=== PATIENT | male | born 2005 | race Caucasian/White ===

== ENCOUNTER 2024-05-29 10:18 | Inpatient (IN) | payer OTHER, SELFPAY ==
[2024-05-28 22:30] VITALS: BP 117/85
--- NOTE | 2024-05-28 23:08 | ED.GENMED ---
History of Present Illness
<RITA Ulloa - Last Filed: 05/29/24 03:37>
General
Chief Complaint: Esophageal Problem
Source: patient
Exam Limitations: none
Time Seen by Provider: 05/28/24 23:01
History of Present Illness
History of Present Illness:
This is a 19 year old male that comes in with c/o food stuck. States that he has a history of food impactions and has esophageal restrictions. State that he feels that there is steak stuck and it has onesimo 5-6 hours. States that he has tried hot and
cold and nothing is working. States that he was spitting up his saliva this afternoon. Denies any fever, chills, chest pain, SOB, abd pain, nausea, vomiting, diarrhea, headache, dizziness, urinary burning
Past History
<RITA Ulloa - Last Filed: 05/29/24 03:37>
Past History
ED Past Medical History: Other (Esophageal restrictions); Negative Asthma, HTN, Hypercholesterolemia or NIDDM
ED Past Surgical History: None
Social History
Tobacco: Smoker
Alcohol: None
Personal: Single
Living: with family (Grandparents)
Review of Systems
<RITA Ulloa - Last Filed: 05/29/24 03:37>
Review of Systems
All Other Systems: ROS reviewed and negative except as documented in HPI and ROS
Constitutional: Reports no symptoms; Denies fever or chills
EENT: Reports other (Feels that he has food Impaction)
Respiratory: Reports no symptoms; Denies cough
Cardiac: Reports no symptoms; Denies chest pain
ABD/GI: Reports no symptoms; Denies abdominal pain, nausea, vomiting or diarrhea
: Reports no symptoms; Denies dysuria, frequency or urgency
Musculoskeletal: Reports no symptoms
Skin: Reports no symptoms
Neurological: Reports no symptoms; Denies dizzy or headache
Psychiatric: Reports no symptoms
Phy Exam
<RITA Ulloa - Last Filed: 05/29/24 03:37>
General Physical Exam
General Presentation: well appearing and no apparent distress
General age: appears stated age
General Skin: warm and dry
General Habitus: normal
General Mental: alert
General Hydration: appears well hydrated
ENT Exam
ENT Exam: TM's normal, pharynx normal, neck supple and other (Patient at this time is swallowing his saliva. )
Eye Exam
Eye Exam: EOMI
Cardiovascular Exam
Cardiovascular Exam: regular rate/rhythm, no edema, no murmur and normal peripheral pulses
Pulmonary Exam
Pulmonary Exam: lungs clear, no respiratory distress, no rales, chest non tender, no crackles, no rhonchi, no wheezing and no cough
Gastrointestinal Exam
Gastrointestinal Exam: normal bowel sounds, non tender, soft, no organomegaly, no pulsatile mass and non distended
Musculoskeletal Exam
Musculoskeletal Exam: full ROM and no edema
Skin Exam
Skin Exam: normal color, warm/dry, no rash and no petechia
Psychiatric Exam
Psychiatric Exam: normal mood/affect
Course
<RITA Ulloa - Last Filed: 05/29/24 03:37>
Orders/Labs/Results
Orders:
Orders
05/28/24 23:08
Glucagon [GlucaGen] 1 mg IV NOW STA
05/28/24 23:49
Complete Blood Count/With Diff Urgent
Comprehensive Metabolic Panel Urgent
05/29/24 00:25
Glucagon [GlucaGen] 1 mg IV NOW STA
Abnormal Lab Results
05/28/24
23:49
MPV 10.9 H fL
(7.4-10.4)
Eosinophils % 7.8 H %
(0-6)
07/23/24 23:49
05/28/24 23:49
Labs unremarkable.
Vital Signs
Initial and Last Documented VS:
Initial Vital Signs
Temp Pulse Resp BP Pulse Ox
98.1 F 90 19 117/85 100
05/28/24 22:30 05/28/24 22:30 05/28/24 22:30 05/28/24 22:30 05/28/24 22:30
Last Documented Vital Signs
Temp Pulse Resp BP Pulse Ox
98.1 F 69 16 121/77 100
05/28/24 22:30 05/29/24 00:25 05/29/24 00:25 05/29/24 00:24 05/29/24 00:26
<Christin Aj, DO - Last Filed: 05/29/24 06:58>
Orders/Labs/Results
Orders:
Orders
05/28/24 23:08
Glucagon [GlucaGen] 1 mg IV NOW STA
05/28/24 23:49
Complete Blood Count/With Diff Urgent
Comprehensive Metabolic Panel Urgent
05/29/24 00:25
Glucagon [GlucaGen] 1 mg IV NOW STA
Abnormal Lab Results
05/28/24
23:49
MPV 10.9 H fL
(7.4-10.4)
Eosinophils % 7.8 H %
(0-6)
05/28/24 23:49
05/28/24 23:49
Vital Signs
Initial and Last Documented VS:
Initial Vital Signs
Temp Pulse Resp BP Pulse Ox
98.1 F 90 19 117/85 100
05/28/24 22:30 05/28/24 22:30 05/28/24 22:30 05/28/24 22:30 05/28/24 22:30
Last Documented Vital Signs
Temp Pulse Resp BP Pulse Ox
98.1 F 69 16 121/77 100
05/28/24 22:30 05/29/24 00:25 05/29/24 00:25 05/29/24 00:24 05/29/24 00:26
<RITA Ulloa - Last Filed: 05/29/24 03:37>
MDM/Problems Addressed
Differential Diagnosis Includes:
Food impaction,
MDM/Problems Addressed:
This is a 19 year old male that comes in with c/o food stuck in his esophagus. State that this started about 5-6 hours ago. States that he has had this before and he tried drinking cold and hot and nothing was helping.
Will check labs, and give IV Glucagon
Patient was given a second dose of Gucagon and then rechecked. Patient attempted to drink fluids after about a half hour and was unable to get them down. Patient spit them up and his saliva. Called and spoke with Brenna Nickerson and he will be in at
7am to take patient to the GI lab. Patient notified and he will await procedure.
Chronic conditions affecting care:
Esophageal strictures
Acute Exacerbation and/or Progression of Chronic Illness:
Esophageal strictures
<RITA Ulloa - Last Filed: 05/29/24 03:37>
*Pulse Oximetry
Patient hypoxic: no
*EKG
Interpreted by ED Provider?: NA
Rate: EKG- N/A
*Media Job Titles Interpretation
Rate: Media Job Titles- N/A
*Critical Care Note
Total Time (30-74mins, 75-104mins- exclusive of procedures): Not Applicable
ED Attending Note
<RITA Ulloa - Last Filed: 05/29/24 03:37>
-
Portions of this chart may have been created with voice recognition software.� Occasional wrong word or��sound alike� substitutions may have occurred due to the inherent limitations of voice recognition software.
<Christin Aj DO - Last Filed: 05/29/24 06:58>
ED Attending Note
Patient seen and examined by attending physician: Yes
I performed the substantive portion of visit, reviewed & personally made and approve the management plan that is documented in note by myself or RUTH.: Yes
I performed a history and physical exam of patient and discussed management with resident, I reviewed resident's note and agree with documented findings and plan of care.: Yes
ED Attending Note:
Patient seen and evaluated at bedside. Patient arrives with concern of food bolus. Notes history of impacted food bolus in the past. Patient initially seen by RUTH. Vital signs within normal limits. Patient handling secretions, however when
trying to drink fluids, vomited. RUTH tried glucagon x 2 without relief. In discussion with GI, will come in this morning for scope.
07:00 - Patient remains hemodynamic stable, again plan for scope by GI
Discharge Plan
Departure
Patient Disposition: GI LAB
Date of Disposition: 05/29/24
Time of Disposition: 01:36
Presentation/result/management discussed w/ accepting MD/DO: Dr. Ceja
Patient with high blood pressure during this ER visit?: No
Condition: Good
Covid-19: Not Applicable
Discharge Problem:
FOOD BOLUS esophagus
Referrals:
NONE,* [Family Provider] -
Interventions
Interventions:
*Risk Screen - Suicide Last Done: 05/28/24 22:30
*General Assessment Last Done: 05/28/24 22:30
*Neglect/Abuse Screening Last Done: 05/28/24 22:30
*ED COVID-19 Vaccine History Last Done: 05/28/24 22:30
XP-Ropguw-Txswafgspf Assessment Last Done: 05/28/24 23:50
ED-EENT Assessment Last Done: 05/28/24 23:50
Discharge Date and Time
Print Language: ISRAELI
[2024-05-28] MEDS: GlucaGen 1 MG IV (23:49)
[2024-05-28 23:50] VITALS: BMI 19.5
[2024-05-29] VITALS (16 sets, daily range): BP systolic 97–140; BP diastolic 57–77; BMI 19.4
[2024-05-29] LABS: % Basophils 0.8 % (0-2); % Eosinophils 7.8 % (0-6); % Immature Granulocytes 0.2 % (0-0.5); % Lymphocytes 38.5 % (20.5-51.1); % Monocytes 5.3 % (1.7-9.3); % Neutrophils 47.4 % (42.2-75.2); Absolute Basophils 0.1 10^3/uL (0-0.2); Absolute Eosinophils 0.7 10^3/uL (0-0.7); Absolute Lymphocytes 3.2 10^3/uL (1.2-3.4); Absolute Monocytes 0.4 10^3/uL (0.1-0.6); Hematocrit 40.4 % (39.0-52.0); Hemoglobin 14.5 g/dL (13.0-18.0); Mean Corp Hgb Conc. 35.9 g/dL (33.0-37.0); Mean Corpuscular Hgb 29.5 pg (27.0-31.0); Mean Corpuscular Volume 82.3 fL (80.0-94.0); Mean Platelet Volume 10.9 fL (7.4-10.4); Nucleated Red Blood Cells % 0 % (-); Platelet Count 199 10^3/uL (130-400); Red Blood Cell Count 4.91 10^6/uL (4.70-6.10); White Blood Cell Count 8.4 10^3/uL (4.8-10.8)
[2024-05-29 00:15] LABS: ALT (SGPT) 17 U/L (0-50); AST (SGOT) 27 U/L (17-59); Albumin 4.8 g/dl (3.5-5.0); Alkaline Phosphatase 64 U/L (38-126); Blood Urea Nitrogen 16 mg/dl (9-20); Calcium 9.6 mg/dl (8.4-10.2); Carbon Dioxide 30 mmol/L (22-30); Chloride 101 mmol/L (98-107); Estimated Creatinine Clearance 108 ml/min; Glucose 91 mg/dl (70-99); Potassium 4.1 mmol/L (3.5-5.1); Sodium 138 mmol/L (135-145); Total Bilirubin 0.8 mg/dl (0.2-1.3); eGFR > 60.00
[2024-05-29] MEDS: GlucaGen 1 MG IV (00:30)
--- NOTE | 2024-05-29 08:02 | CON.GI ---
Consultation
-
Date/Time Consultation Requested: 05/29/2024
Date/Time Consultation Performed: 05/29/2024
Requesting Provider: ED
Performing Provider: Eugene CALVERT
Reason for Consultation: Food bolus
Medical History
Chief Complaint / HPI
Chief Complaint: dysphagia
History of Present Illness:
19 y/o male with no significant pmhx c/o food impaction after eating steak for dinner . unable to tolerate liquid. no nausea/ vomiting/ chest pain/ SOB. intermittent difficulty swallowing in the past. No prior endoscopy .
Past Medical History
Past Medical History: None
Allergies / Home Medications
Allergy/AdvReac Type Severity Reaction Status Date / Time
shellfish derived Allergy Hives Verified 05/28/24 22:30
tree nut Allergy Hives Verified 05/28/24 22:30
Review of Systems
-
All other systems: A 12 pt ROS was Negative except as stated above in HPI
Vital Signs
Temp Pulse Resp BP Pulse Ox
98.1 F 69 16 110/73 100
05/28/24 22:30 05/29/24 00:25 05/29/24 00:25 05/29/24 07:19 05/29/24 07:19
Physical Exam
Exam
General: Well Developed and No Apparent Distress
Respiratory: Clear
Cardiac: S1/S2
GI: Soft, Non Tender and Non Distended
Results
WBC 8.4 10^3/uL (4.8-10.8) 05/28/24 23:49
Hgb 14.5 g/dL (13.0-18.0) 05/28/24 23:49
Hct 40.4 % (39.0-52.0) 05/28/24 23:49
MCV 82.3 fL (80.0-94.0) 05/28/24 23:49
Plt Count 199 10^3/uL (130-400) 05/28/24 23:49
Absolute Neuts (auto) 4.0 10^3/uL (1.4-6.5) 05/28/24 23:49
Sodium 138 mmol/L (135-145) 05/28/24 23:49
Potassium 4.1 mmol/L (3.5-5.1) 05/28/24 23:49
Chloride 101 mmol/L (98-107) 05/28/24 23:49
Carbon Dioxide 30 mmol/L (22-30) 05/28/24 23:49
BUN 16 mg/dl (9-20) 05/28/24 23:49
Creatinine 1.0 mg/dL (0.7-1.3) 05/28/24 23:49
Calcium 9.6 mg/dl (8.4-10.2) 05/28/24 23:49
Total Bilirubin 0.8 mg/dl (0.2-1.3) 05/28/24 23:49
AST 27 U/L (17-59) 05/28/24 23:49
ALT 17 U/L (0-50) 05/28/24 23:49
Alkaline Phosphatase 64 U/L (38-126) 05/28/24 23:49
Diagnostic Image Results:
Prior GI Procedures:
EGD:
Colonoscopy:
Assessment / Plan
-
19 y/o male c/o food impaction. Intermittent dysphagia in the past. No prior EGD
plan
EGD today
Total Time Spent with Patient (in minutes): 55
-
-
Thank you for consultation and allowing me to participate in the patient's care. Please call the iphone developer GI physician during the after hours with any questions or concerns.
--- NOTE | 2024-05-29 09:19 | HPS.HSE ---
Family Physician
-
Family Physician: * NONE
Chief Complaint
-
Food stuck in chest
History of Present Illness
Patient is a 19-year-old male with no previous past medical history came to ER for having sensation of food stuck in lower chest. Patient had 1 or 2 episode in the past where patient was able to pass the food bolus with liquid. Patient attempted
similar this time without much help. Patient came to ER for further evaluation and clinically there was concern of impacted food. GI was consulted and patient was taken to endoscopy where food bolus was able to be evacuated. Patient was noticed
to having significant narrowing of esophagus and waviness mucosa suspected to have eosinophilic esophagitis. Biopsy samples were taken and while scope being withdrawn patient was noted to having to midesophagus linear mucosal tear. Patient was
also complaining significant chest pain and there was concern of having an esophageal perforation. Patient was sent down to have emergent CT chest confirming the suspicion with imaging showing diffuse pneumomediastinum. Hospitalist service were
involved in care for patient to be admitted to ICU while awaiting further management plan.
Time of my visit patient in pain and distress and not able to provide any information.
Medical History
Past Medical History
Past Medical History: Reports Other
Additional Past Medical History:
None
Past Surgical History: Reports None
Social History
Tobacco: Non-smoker
Alcohol: None
Drug: None
Family History
Family History: Not pertinent
Allergies / Home Medications
Allergies reflects when Allergies were last updated in [facility].
Home Medications with original date entered in [facility]
Allergy/Medication List:
No home meds
NKDA
Review of Systems
-
Unable to obtain full review of systems at this time due to: Acuity
Physical Exam
Vital Signs
Vital Signs
Temp Pulse Resp BP Pulse Ox
97.5 F 73 16 105/63 100
05/29/24 08:45 05/29/24 09:00 05/29/24 09:00 05/29/24 09:00 05/29/24 09:00
Physical Exam
General: Appears in Distress and Pain
HEENT: Moist mucous membranes and Oxygen (2 L NC)
Respiratory: Clear
Cardiac: S1/S2 and Regular Rhythm; No Murmur or Rub
GI: Soft, Non Distended, Normal Bowel Sounds and Tender (epigastric); No Organomegaly
Musculoskeletal: No Edema
Skin: No Rash
Neuro: Nonfocal/grossly intact
Laboratory Results
-
05/28/24 23:49
05/28/24 23:49
Laboratory Results
Total Bilirubin 0.8 mg/dl (0.2-1.3) 05/28/24 23:49
AST 27 U/L (17-59) 05/28/24 23:49
ALT 17 U/L (0-50) 05/28/24 23:49
Alkaline Phosphatase 64 U/L (38-126) 05/28/24 23:49
Data Reviewed
-
CT Scan: Image Personally Visualized and interpreted, Report Reviewed by me and Discussed with Physician
Lab Data: Labs Reviewed by me
Impression/Plan
-
1. Esophageal perforation
Pneumomediastinum
s/p endoscopic evacuation of impacted food bolus
-As mentioned in HPI patient had endoscopic with question of impacted distal esophageal food bolus
-Patient noted to having mid esophageal tear endoscopically
-CT chest was showing diffuse pneumomediastinum
-GI care with on-call cardiothoracic surgeon who recommended patient to be transferred to tertiary center for need of esophageal repair.
-Patient accepted by [facility] cardiothoracic surgery and being transferred emergently for further care
-Patient to be admitted to ICU while in
-Started patient on empirically vancomycin/Unasyn and micafungin
-Maintain patient n.p.o. on IV fluid and pain medication
-Case discussed with gauge inspector/GI
2. Presumed eosinophilic esophagitis
-Based on endoscopic finding GI suspecting component of eosinophilic esophagitis
-Biopsy has been taken
-Maintain on IV twice daily PPI
DVT prophylaxis -SCD
Full code
Total time spent : 80 mins
I personally saw and examined the patient.
I have reviewed all diagnostic interpretations and treatment plans as written.
Time includes patient management by me, time spent at the patients bedside, time to review lab and imaging results, discussing patient care, documentation in the medical record, and time spent with the family or caregiver and discussing care plan
with RN/Consultants.
[2024-05-29] MEDS: MORPHINE SULFATE 1 MG IV ×3 (09:35→14:42)
[2024-05-29] MEDS: MORPHINE SULFATE IV (09:36)
[2024-05-29] MEDS: SUBLIMAZE 25 MCG IV (10:02)
[2024-05-29] MEDS: D5LR 1000 IV (10:26)
[2024-05-29] MEDS: VANCOCIN 540 MG IV (10:27)
--- NOTE | 2024-05-29 10:36 | CON.INTV ---
Consultation
Consultation Request
Date/Time Consultation Requested: 05/29/2024-10:30 AM
Date/Time Consultation Performed: 05/29 24-10:45 AM
Requesting Provider: Hospitalist-Dr. Rod
Performing Provider: Dr. Tsang
Reason for Consultation: Esophageal perforation/critical care management
Medical History
-
Chief Complaint: Chest and abdominal pain
History of Present Illness:
19-year-old male without significant past medical history complained of food impaction after eating steak for dinner and try to dislodge with some retching for 7 hours prior to coming to the emergency room who had endoscopy with impaction removal
and notation of esophageal perforation-computer analyst consulted for esophageal perforation/mediastinitis 05/25/2024. The patient is complaining of significant pain in the chest especially with deep inspiration, morphine helping, no abdominal pain,
nausea, weakness, shortness of breath.
Past Medical History
Past Medical History: None (No history of cardiac, pulmonary, renal, gastrointestinal or neurologic disease)
Social History
Tobacco: Non-smoker
Personal: Single
Living: With Family
Occupational Exposures: No known asbestos exposure
Environmental Exposures: No known tuberculosis exposure
Family History
Family History: Reviewed & Not Pertinent
Allergies / Home Medications
Allergies
Allergy/AdvReac Type Severity Reaction Status Date / Time
shellfish derived Allergy Hives Verified 05/28/24 22:30
tree nut Allergy Hives Verified 05/28/24 22:30
Review of Systems
-
Unable to Obtain full review of systems at this time due to: Other (Per HPI)
Vitals / Labs / Diagnostic Testing
Vital Signs
Temp Pulse Resp BP Pulse Ox
97.5 F 68 18 128/71 100
05/29/24 08:45 05/29/24 10:00 05/29/24 10:00 05/29/24 10:00 05/29/24 10:10
Lab Data
05/28/24 23:49
05/28/24 23:49
Diagnostic Testing:
Physical Exam
-
Exam:
Well-nourished and well-developed in no apparent distress
HEENT-atraumatic, normocephalic
Neck-supple, no JVD, no bruit
Heart-regular rate and rhythm-no murmurs, rubs or gallops
Chest clear without wheezing or crackling, no subcutaneous air
Abdomen soft nondistended,
Extremities-no cyanosis, clubbing, edema and good peripheral pulses
Integument-intact, no rashes, lesions or ecchymosis
Neurology-alert and oriented, nonfocal motor and sensory exam
Assessment
-
19-year-old male without significant past medical history complained of food impaction after eating steak for dinner and try to dislodge with some retching for 7 hours prior to coming to the emergency room who had endoscopy with impaction removal
and notation of esophageal perforation-computer analyst consulted for esophageal perforation/mediastinitis 05/25/2024.
Food impaction status post EGD 05/25/2024
Esophageal perforation
Conditions present prior to admission:
No significant past medical history
Plan
Patient will be admitted to medical/surgical intensive care unit for close observation
Supplemental oxygen as needed
Intubated mechanically ventilated if necessary
Close hemodynamic monitoring and support
Large-bore intravenous line
Intravenous fluid with isotonic saline or lactated Ringer's
Pressors as needed
GI evaluation ongoing
EGD 05/29/24-fluid found in lower third of esophagus, most of fluid was removed with net, biopsies taken for suspected eosinophilic esophagitis, 2 areas in the mid esophagus with linear mucosal tears were noted
Check cultures
Broad-spectrum antibiotics to cover mediastinitis-ampicillin/sulbactam, micafungin and vancomycin initiated
Thoracic surgical evaluation
Islam of luminal integrity if feasible
Control of extraluminal contamination
Analgesia-morphine and Dilaudid provided
Monitor for oversedation and respiratory depression
DVT prophylaxis-mechanical for now
GI prophylaxis-on intravenous PPI
Nutrition per surgery
Early mobilization
Transfer to tertiary center-[facility] has accepted-await bed availability
Critical care statement: A total of 55 minutes of critical care time was provided for this patient today. This includes management of unstable vital signs, evaluation of the patient at bedside, reviewing the patient's pertinent medical records
including radiographs, antibiotic and pressor management, pain management, microbiology, laboratory evaluations, and discussion with primary team, consultants, pharmacy, nutrition, physical therapy, case management, charge nurse, critical care
nursing, and respiratory therapy.
Diagnostic data:
Chest x-ray 05/29/2024-NAD, suboptimal visualization subcutaneous gas in the lower neck, no airspace disease, no pneumothorax
CT chest 05/25/2024-pneumomediastinum, partially visualized pneumoperitoneum, subcutaneous gas in the lower neck compatible with perforated viscus, central airways are patent, left lower lobe atelectasis
Data Reviewed
-
Radiology: Report reviewed by me
CT Scan: Image personally visualized and interpreted and Report reviewed by me
Medical Tests (Nuc Med, Echo etc): Report reviewed by me
Labs: Labs reviewed by me
Old Records: Reviewed
Critical Care Time (in minutes): 55
[2024-05-29] MEDS: PROTONIX IV 40 MG IV (10:39)
[2024-05-29] MEDS: NSS (PRESERVATIVE FREE) 10 ML IV (10:39)
--- NOTE | 2024-05-29 10:39 | W.PN.UPDATE ---
Update Note
Progress Note Update
CT chest findings discussed with patient / patient's father/ hospitalist/ CT surgery at . CT surgery at recommend patient to be transferred to [facility] for further care. Patient will be admitted to the ICU. Broad spectrum IV antibiotics .
Discussed with Dr. Gaytan - thoracic surgeon AT [facility] - accepted this patient as level 0. will transfer patient to [facility] when bed is available. Plan updated to Patient's father/ hospitalist team.
--- NOTE | 2024-05-29 11:10 | PHA.VAN.IN ---
Assessment
- Assessment
Renal Function: Unknown baseline (likely similar to baseline)
Concomitant Antimicrobials: ampicillni/sulbactam, micafungin
AUC Dosing Plan
- Dosing Variables
Dosing Weight (kg): 77.6
Dosing CrCl (ml/min): 107-125
Vd coefficient (L/kg): 0.7
Used IBW for dosing weight given BMI < 20
CrCl range calculated using IBW and TBW
- Empiric Dosing
Initial / Loading Dose: 2000mg - 05/29 10:27
Maintenance Regimen: Vanc 750mg Q8H at 2200
Estimated AUC (mcg*h/mL): 404 - 465
Estimated Peak (mcg*h/mL): 23.8 - 26.3
Estimated Trough (mcg/ml): 11.2 - 13.7
Estimated Half Life (H): 6.4 - 7.4
- Monitoring
No levels ordered at this time: consider levels in next few days
Pharmacokinetics Vancomycin I
- -
Patient Age: 19
Patient Sex: Male
Vancomycin Day #: 1
Indication: Other
Requesting Provider: Dr. Rod
Pertinent Antimicrobial Allergies:
no pertinent antibiotic allergies
Height / Weight:
Height 6 ft
Actual Weight 64.8 kg
IBW in k.6
Pertinent Past Medical History: 19.4
- Vital Signs / Lab Results
Temp Pulse Resp BP Pulse Ox
97.9 F 68 18 128/71 100
05/29/24 10:41 05/29/24 10:00 05/29/24 10:00 05/29/24 10:00 05/29/24 10:10
Lab Results - Hematology
05/28/24
23:49
WBC 8.4
Lab Results - Chemistry
05/28/24
23:49
BUN 16
Creatinine 1.0
Estimated Creat Clear 108
Albumin 4.8
--- NOTE | 2024-05-29 11:16 | PTCARENOTE ---
Received patient from [facility] team. GI at bedside with family. Dr Rod updating plan of transfer to [facility] based on surgery and availability. Update call center when time frame is updated. Updated assessment, nursing data base, and plan of cares.
Patient and father updated plan of cares and plan of ICU stay. GI team with father update plan of cares and plan of transfer. Unit orientation and follow up teaching. Pain medications, abx, and IVF as ordered.
[2024-05-29 11:35] LABS: INR 1.05; PT 13.7 Sec (11.4-14.6)
[2024-05-29] MEDS: DILAUDID 0.5 MG IV (11:59)
[2024-05-29] MEDS: MYCAMINE 105 MG IV (12:00)
--- NOTE | 2024-05-29 12:12 | PTCARENOTE ---
Update with transfer teams. Report given to [facility] team. Await transport time and plan. IVF, Abx, and pain medicine continue follow up with pharmacy and [facility]. Update family transfer information.
--- NOTE | 2024-05-29 12:42 | CM ---
CM following re: discharge planning.
Reviewed pt's chart, met with pt and pt's father at bedside.
Pt is a 19 year old male, admitted with primary dx of Esophageal perforation.
pt presents lying in the bed and resting comfortable, sleeping.
Per father, pt lives with him in [place], [address]. Pt came to [place] one month ago to take care of his grandfather who recently was a patient at and was discharged to [facility].
Pt's father is aware that pt is accepted for transfer to [facility] for CT surgery.
arranged ALS ambulance with Dr. Zd ambulance ALS with pickle water pump operator time between 2:00 p.m and 4:00 p.m. PMNC completed.
D/C plan: transfer to [facility].
[2024-05-29] MEDS: UNASYN IV (13:04)
--- NOTE | 2024-05-29 13:40 | PTCARENOTE ---
Father and grandmother updated plan of cares. Update on plan of transport window. Continue with updates. Critical care nursing in and out at bedside. VSS, saturation 100% on 2lpm n/c, no noted sob/rivera, pain well managed with medications and
positioning. IVF continues.
--- NOTE | 2024-05-29 14:56 | PTCARENOTE ---
Patient received from [facility]. Patient presents as assessed. Pt is alert and oriented x3. NSR on telemetry. Patient maintains on 2l nc, diminished/shallow breathing d/t pain on inspiration. Urinal at bedside. Patient complains of pain in the upper
back and chest. PRN medication administered. Awaiting transfer to [place].
--- NOTE | 2024-05-29 16:28 | PTCARENOTE ---
Patient discharged from [facility] and transferred to [facility] via ambulance.
== END 2024-05-29 16:34 | disposition short-term general hospital (02) | DRG 393 ==
LOC: ICU 10:18
PROVIDERS: Clinical Nurse Specialist Family Health; ADMITTING PHYSICIAN Hospitalist; ATTENDING PHYSICIAN Internal Medicine Gastroenterology; CONSULT PHYSICIAN Internal Medicine Critical Care Medicine; EMERGENCY PHYSICIAN Student in an Organized Health Care Education/Training Program
PROC: 0DB18ZX Excision of Upper Esophagus, Via Natural or Artificial Opening Endoscopic, Diagnostic (ICD-10-PCS; 2024-05-29)
PROC: 0DC38ZZ Extirpation of Matter from Lower Esophagus, Via Natural or Artificial Opening Endoscopic (ICD-10-PCS; 2024-05-29)
PROC: 0DB38ZX Excision of Lower Esophagus, Via Natural or Artificial Opening Endoscopic, Diagnostic (ICD-10-PCS; 2024-05-29)
DX: T18.128A Food in esophagus causing other injury, initial encounter (principal); J98.51 Mediastinitis; K22.3 Perforation of esophagus; K20.0 Eosinophilic esophagitis; W44.F3XA Food entering into or through a natural orifice, initial encounter
CPT/HCPCS: 88305; 71045; 71250; 80053; 83735; 85025; 85610; 85730; J1610

== ENCOUNTER → 2024-06-26 09:59 | Outpatient (REF) | payer OTHER, SELFPAY | LOC: RCS 09:59 | PROVIDERS: ATTENDING PHYSICIAN Internal Medicine | DX: R00.2 Palpitations (principal) | CPT/HCPCS: 93225; 93226 ==

== ENCOUNTER 2024-11-05 17:32 | Emergency (ER) | payer OTHER, SELFPAY ==
[2024-11-05 17:33] VITALS: BP 128/82
--- NOTE | 2024-11-05 19:24 | ED.GENMED ---
History of Present Illness
General
Chief Complaint: Back Pain
Source: patient
Exam Limitations: none
Time Seen by Provider: 11/05/24 19:07
History of Present Illness
History of Present Illness:
This is a 19 year old male that comes in with c/o low back pain. States that he had tweaked hid back and it was bothering him on and off for a couple of weeks States that he was doing squats today and he started with increased pain. States that he
really messed his back up. State that he did not fall due to the pain. States that the pain is more on the left side. States that he took Ibuprofen at 3:30pm. Denies any fever, chills, chest pain, SOB, abd pain, nausea, vomiting, diarrhea,
headache, dizziness, urinary burning.
Past History
Past History
ED Past Medical History: Other (Esophageal restrictions, eosinophilic Esophagitis); Negative Asthma, HTN, Hypercholesterolemia or NIDDM
ED Past Surgical History: None
Social History
Tobacco: Non-smoker
Alcohol: None
Personal: Single
Living: with family (Grandparents)
Review of Systems
Review of Systems
All Other Systems: ROS reviewed and negative except as documented in HPI and ROS
Constitutional: Reports no symptoms; Denies fever or chills
EENT: Reports no symptoms
Respiratory: Reports no symptoms; Denies cough or trouble breathing
Cardiac: Reports no symptoms; Denies chest pain
ABD/GI: Reports no symptoms; Denies abdominal pain, nausea, vomiting or diarrhea
: Reports no symptoms; Denies dysuria, frequency or urgency
Musculoskeletal: Reports back pain (Lumbar area to the left)
Skin: Reports no symptoms
Neurological: Reports no symptoms; Denies dizzy or headache
Psychiatric: Reports no symptoms
Phy Exam
General Physical Exam
General Presentation: mild distress
General age: appears stated age
General Skin: warm and dry
General Habitus: normal
General Mental: alert
General Hydration: appears well hydrated
ENT Exam
ENT Exam: TM's normal, pharynx normal and neck supple
Eye Exam
Eye Exam: EOMI
Cardiovascular Exam
Cardiovascular Exam: regular rate/rhythm, no edema, no murmur and normal peripheral pulses
Pulmonary Exam
Pulmonary Exam: lungs clear, no respiratory distress, no rales, chest non tender, no crackles, no rhonchi, no wheezing and no cough
Musculoskeletal Exam
Musculoskeletal Exam: full ROM, no edema and other (Negative spinal tenderness with palpation. discomfort with straight leg raise, Turning to the left side. Going up on his toes and bending forward about 45 degrees)
Skin Exam
Skin Exam: normal color, warm/dry, no rash and no petechia
Psychiatric Exam
Psychiatric Exam: normal mood/affect
Course
Orders/Labs/Results
Orders:
Orders
11/05/24 19:16
Acetaminophen [Tylenol] 1,000 mg PO NOW STA
Lumbar Spine Complete, 4 View [CR Lumbar Spine Comp Min 4 Vw*] Urgent
Comment:
Reason For Exam: pain low back
Vital Signs
Initial and Last Documented VS:
Initial Vital Signs
Temp Pulse Resp BP Pulse Ox
97.8 F 94 18 128/82 98
11/05/24 17:33 11/05/24 17:33 11/05/24 17:33 11/05/24 17:33 11/05/24 17:33
Last Documented Vital Signs
Temp Pulse Resp BP Pulse Ox
97.8 F 94 18 128/82 98
11/05/24 17:33 11/05/24 17:33 11/05/24 17:33 11/05/24 17:33 11/05/24 17:33
MDM/Problems Addressed
Differential Diagnosis Includes:
Musculoskeletal pain, Compression fractures.
MDM/Problems Addressed:
This is a 19 year old male that comes in with c/o low back pain after doing squats at the gym. States that he tweaked his back a couple of weeks ago and it has bothered him on and off. States that it is much worse now.
Will get X-ray, Medicate with Tylenol as patient took Ibuprofen at 3pm
back into see patient. patient was sleeping. Explained that he has some degenerative changes of L5/S1. patient can follow up with the family doctor for recheck. If they feels necessary can get MRI. Patient to alternate with Tylenol and Ibuprofen for
pain. Rest. No working out until pain free. Return with any concerns.
Chronic conditions affecting care:
NA
Acute Exacerbation and/or Progression of Chronic Illness:
NA
*Radiology
Radiology exam reviewed: radiology read reviewed (Lumbar-Mild left convex curvature of the lower lumbar spine. Mild discogenic degenerative disease at L5/S1. Partial lumbarization of the S1 segment. )
*Pulse Oximetry
Patient hypoxic: no
*EKG
Interpreted by ED Provider?: NA
Rate: EKG- N/A
*Customer Advisor Interpretation
Rate: Customer Advisor- N/A
*Critical Care Note
Total Time (30-74mins, 75-104mins- exclusive of procedures): Not Applicable
ED Attending Note
-
Portions of this chart may have been created with voice recognition software.� Occasional wrong word or��sound alike� substitutions may have occurred due to the inherent limitations of voice recognition software.
Discharge Plan
Departure
Patient Disposition: Home (Routine Discharge)
Date of Disposition: 11/05/24
Time of Disposition: 21:29
Patient with high blood pressure during this ER visit?: No
Condition: Good
Covid-19: Not Applicable
Discharge Problem:
Degenerative disc disease at L5-S1 level, Low back pain
Instructions: Low Back Pain (DC), Degenerative Disc Disease ED
Prescriptions:
No Action
No Current Medications
0
Referrals:
UNKNOWN - PT DOES,NOT KNOW [Family Provider] -
Activity Restrictions/Additional Instructions:
As discussed, your x-ray is negative for any fracture. There is degenerative changes of L5/S1. Please follow up with the family doctor for recheck. You may use Tylenol 1000mg every 6 hours and alternate with Ibuprofen 600mg every 6 hours with food.
Rest. No working out until you are pain free. You may also use Heat or ice to the low back which ever makes you feel better. IF YOU HAVE ANY NUMBNESS OR YOU HAVE ANY OTHER CONCERNS PLEASE RETURN TO THE EMERGENCY ROOM .
Interventions
Interventions:
*Risk Screen - Suicide Last Done: 11/05/24 20:23
*General Assessment Last Done: 11/05/24 20:23
*Neglect/Abuse Screening Last Done: 11/05/24 20:23
*ED COVID-19 Vaccine History Last Done: 11/05/24 20:23
ED-Musculoskeletal Assessment Last Done: 11/05/24 20:23
Discharge Date and Time
Print Language: [id number]
[2024-11-05] MEDS: TYLENOL 1000 MG PO (20:16)
[2024-11-05 20:23] VITALS: BMI 21.0
[2024-11-05 21:00] VITALS: BP 122/78
== END 2024-11-05 22:02 | disposition home or self-care (01) ==
LOC: EMR 17:32
PROVIDERS: EMERGENCY PHYSICIAN Student in an Organized Health Care Education/Training Program
DX: M51.379 Other intervertebral disc degeneration, lumbosacral region without mention of lumbar back pain or lower extremity pain (principal); M54.50 Low back pain, unspecified
CPT/HCPCS: 99283; 72110